=== PATIENT | female | born 1985 | race Two or more races ===

== ENCOUNTER 2024-03-21 14:31 | Emergency (ER) | payer OTHER ==
[~2024-03-21] VITALS: Ht 170.2 cm; Wt 120.2 kg
[2024-03-21] MEDS ORDERED: COZAAR50 MG (15:05)
[2024-03-21] MEDS ORDERED: KETOROLAC TROMETHAMINE 60 MG VIAL IM STA (15:34)
[2024-03-21] MEDS ORDERED: KETOROLAC TROMETHAMINE 60 MG VIAL IM ONE (15:44)
[2024-03-21 16:05] LABS: HEMATOCRIT 42.3 % (36.0-45.00); HEMOGLOBIN 14.1 g/dL (12.0-15.00); MEAN CELL VOLUME 81.5 fL (80.00-100.00); MEAN CORPUSCULAR HEMOGLOBIN 27.1 pg (27.00-32.0); MEAN CORPUSCULAR HGB CONC 33.3 g/dl (32.0-36.0); PLATELET COUNT 255 K/uL (150-450); RED BLOOD COUNT 5.18 M/uL (4.00-6.00)
[2024-03-21 16:22] LABS: PH,URINE 6.5 (5.0-8.0); URINE APPEARANCE Clear; URINE BILIRRUBIN Negative (NEGATIVE); URINE BLOOD Large; URINE COLOR Yellow; URINE GLUCOSE Negative (NEGATIVE); URINE KETONE Negative (NEGATIVE); URINE LEUKOCYTE Moderate; URINE NITRATE Negative; URINE PROTEIN 30 (NEGATIVE)
[2024-03-21 16:26] LABS: URINE EPITHELIAL CELLS 25.8 uL (0.0-38.8); URINE RBC 22.5 uL (0.0-20.8); URINE WBC 116.6 uL (0.0-23.2)
[2024-03-21 16:27] LABS: CALCIUM 8.9 mg/dL (8.5-10.1); CREATININE SERUM 0.75 mg/dL (0.55-1.02); GFR 86.48; POTASSIUM 3.57 mEq/L (3.5-5.1)
== END 2024-03-21 18:13 | disposition home or self-care (01) ==
LOC: ER 14:34
PROVIDERS: General Practice
DX: R10.9 Unspecified abdominal pain (principal); I10 Essential (primary) hypertension